=== PATIENT | male | born 1950 | race Caucasian/White ===

== ENCOUNTER 2017-03-13 08:30 | Inpatient (IN) | payer BC, MEDICARE ==
[~2017-03-13] VITALS: Ht 165.1 cm; Wt 60.8 kg
[~2017-03-13 08:30] MED LIST: ASPI-605 PO; CHOL20004 PO; OMEG-49 PO; SIMV10TA6 PO
[2017-03-13] MEDS ORDERED: AMLODIPINE BESYLATE 5 MG TAB PO (08:41)
[2017-03-13 09:16] LABS: BASOPHILS % (AUTO) 0.3 % (0.0-2.0); EOSINOPHILS # (AUTO) 0.1 K/uL (0.0-0.7); EOSINOPHILS % (AUTO) 0.9 % (0.0-7.0); HEMATOCRIT 42.8 % (36.7-47.1); HEMOGLOBIN 15.1 g/dL (12.5-16.3); LYMPHOCYTES # (AUTO) 1.4 K/uL (20.0-40.0); LYMPHOCYTES % (AUTO) 13.2 % (20.5-51.5); MEAN CORPUSCULAR HEMOGLOBIN 30.6 uug (23.8-33.4); MEAN CORPUSCULAR HGB CONC 35 g/dL (32.5-36.3); MEAN CORPUSCULAR VOLUME 86.8 fL (73.0-96.2); MONOCYTES # (AUTO) 0.6 K/uL (2.0-10.0); MONOCYTES % (AUTO) 5.9 % (0.0-11.0); NEUTROPHILS # (AUTO) 8.2 K/uL (1.8-8.9); NEUTROPHILS % (AUTO) 79.7 % (38.5-71.5); PLATELET COUNT (AUTO) 167 K/uL (152-348); RED BLOOD CELL COUNT(AUTO) 4.93 MIL/uL (4.06-5.63); WHITE BLOOD COUNT (AUTO) 10.3 K/uL (3.6-10.2)
[2017-03-13 09:17] LABS: *BILIRUBIN,URIN NEGATIVE (NEGATIVE); *BLOOD, URINE Trace-lysed (NEGATIVE); *CLARITY,URINE CLEAR (CLEAR); *COLOR,URINE YELLOW (YELLOW); *KETONES,URINE NEGATIVE (NEGATIVE); *PROTEIN,URINE NEGATIVE (NEGATIVE); *UROBILINOGEN,URINE 0.2 E.U./dl (NORMAL); LEUKOCYTE ESTERASE ,URINE NEGATIVE (NEGATIVE); NITRITE, URINE NEGATIVE (NEGATIVE); PH,URINE 7.5 (5.0-8.0); UGLUCOSE NEGATIVE (NEGATIVE)
[2017-03-13 09:25] LABS: CREATININE 0.9 mg/dL (0.6-1.3); POTASSIUM 3.9 mmol/L (3.5-5.1)
[2017-03-13 09:31] LABS: BILIRUBIN,TOTAL 1.1 mg/dL (0.2-1.0); TOTAL PROTEIN, SERUM 7.6 g/dL (6.4-8.2)
[2017-03-13 09:37] LABS: BACTERIA,URINE NONE SEEN /HPF (NONE SEEN); MUCUS,URINE FEW /LPF (0-FEW); SQUAMOUS EPITHELIAL CELL,UR FEW /HPF (NONE SEEN); WBC,URINE 0-3 /HPF (0-3)
--- NOTE | 2017-03-13 11:44 | NUR ---
dr. boyd at bedside for gi consult per dr. javad henderson request
--- NOTE | 2017-03-13 12:09 | NUR ---
pt transfered to floor in stable codition. pt deneis nausea the whole er stay, for the abdominal discomfort, pt refused any pain med the whole er stay
--- NOTE | 2017-03-13 12:20 | NUR ---
Patient arrived from ER, ambulated to bed with no concern. Patient in no evident distress at this time. Bed placed in low position, side rails up x2.
[2017-03-13 13:30] VITALS: BP 129/76
[2017-03-13 14:21] LABS: AMYLASE 45 U/L (25-115); LIPASE 118 U/L (73-393)
[2017-03-13 16:05] VITALS: BP 114/70
--- NOTE | 2017-03-13 18:44 | NUR ---
Patient is in bed, tolerated dinner meal well. No evidence of distress noted at this time. Bed in low position, side rails up x2. Waiting for patient to void in order to send UA drug screening, MRSA swab completed, and Rapid influenza complete.
[2017-03-13 19:21] LABS: *BILIRUBIN,URIN NEGATIVE (NEGATIVE); *BLOOD, URINE Trace-lysed (NEGATIVE); *CLARITY,URINE CLEAR (CLEAR); *COLOR,URINE YELLOW (YELLOW); *KETONES,URINE NEGATIVE (NEGATIVE); *PROTEIN,URINE NEGATIVE (NEGATIVE); *UROBILINOGEN,URINE 0.2 E.U./dl (NORMAL); LEUKOCYTE ESTERASE ,URINE NEGATIVE (NEGATIVE); NITRITE, URINE NEGATIVE (NEGATIVE); UGLUCOSE NEGATIVE (NEGATIVE)
[2017-03-13 19:37] LABS: *AMPHETAMINE, URINE NEGATIVE (NEGATIVE); *BARBITURATE, URINE NEGATIVE (NEGATIVE); *CANNABINOID, URINE NEGATIVE (NEGATIVE); *COCCAINE, URINE NEGATIVE (NEGATIVE); *OPIATE, URINE NEGATIVE (NEGATIVE); *PHENCYCLIDINE SCREEN,URINE NEGATIVE (NEGATIVE)
[2017-03-13 19:56] LABS: MUCUS,URINE FEW /LPF (0-FEW); WBC,URINE 0-3 /HPF (0-3)
--- NOTE | 2017-03-13 20:35 | NUR ---
NSG: Received Patient laying in bed. No c/o pain or discomfort distress noted at this time. ivf running well. Bed in low position, side rails up x2. family member at bedside.
[2017-03-13 20:42] VITALS: BP 123/65
--- NOTE | 2017-03-14 00:09 | NUR ---
NSG: PATIENT RESTING EYES CLOSE. NO S/S OF PAIN OR DISCOMFORT NOTED THIS TIME.
[2017-03-14 04:00] VITALS: BP 110/61
[2017-03-14 04:53] VITALS: BP 110/61
--- NOTE | 2017-03-14 06:21 | NUR ---
NSG: SLEPT WELL. AMBULATE TO BATH ROOM WITHOUT ANY PROBLEM. STEADY GAIT.COMPLIANT WITH AM MEDS.NO C/O PAIN OR DISCOMFORT AT THIS TIME.CONTINUE PLAN OF CARE.
--- NOTE | 2017-03-14 07:15 | NUR ---
RECEIVED REPORT FROM FAIRING WORKER NURSE, PATIENT IN BED ASLEEP, NO EVIDENCE OF DISTRESS SEEN, BED IN LOW POSITION, SIDE RAILS UP X2.
[2017-03-14 07:56] LABS: PHOSPHOROUS 3.8 mg/dL (2.5-4.9)
[2017-03-14 07:57] LABS: THYROID STIMULATING HORMONE 2.586 mIU/mL (0.358-3.740)
[2017-03-14 08:01] LABS: BASOPHILS % (AUTO) 0.4 % (0.0-2.0); EOSINOPHILS # (AUTO) 0.3 K/uL (0.0-0.7); EOSINOPHILS % (AUTO) 4.3 % (0.0-7.0); HEMATOCRIT 41.9 % (36.7-47.1); HEMOGLOBIN 14.5 g/dL (12.5-16.3); LYMPHOCYTES # (AUTO) 1.5 K/uL (20.0-40.0); LYMPHOCYTES % (AUTO) 25.1 % (20.5-51.5); MEAN CORPUSCULAR HEMOGLOBIN 30.1 uug (23.8-33.4); MEAN CORPUSCULAR HGB CONC 35 g/dL (32.5-36.3); MEAN CORPUSCULAR VOLUME 86.9 fL (73.0-96.2); MONOCYTES # (AUTO) 0.4 K/uL (2.0-10.0); MONOCYTES % (AUTO) 7.3 % (0.0-11.0); NEUTROPHILS # (AUTO) 3.9 K/uL (1.8-8.9); NEUTROPHILS % (AUTO) 62.9 % (38.5-71.5); PLATELET COUNT (AUTO) 165 K/uL (152-348); RED BLOOD CELL COUNT(AUTO) 4.82 MIL/uL (4.06-5.63)
[2017-03-14 08:21] LABS: WHITE BLOOD COUNT (AUTO) 6.2 K/uL (3.6-10.2)
[2017-03-14 11:03] VITALS: BP 123/70
[2017-03-14] MEDS ORDERED: CIPR500T5 PO (12:18)
[2017-03-14] MEDS ORDERED: METR250T PO (12:18)
--- NOTE | 2017-03-14 14:20 | NUR ---
Patient was given discharge education, IV removed, and patient was escorted in a wheel chair. Patient was in no evident distress, no SOB, no pain, voiding and passing gas. Patient had two bowel movements today.
== END 2017-03-14 14:30 | disposition home or self-care (01) | DRG 392 ==
LOC: ER 08:30 → TELE 12:02 → MED 18:46
PROVIDERS: ADMIT Internal Medicine; ATTEND Internal Medicine
DX: A08.4 Viral intestinal infection, unspecified (principal); I10 Essential (primary) hypertension; E78.5 Hyperlipidemia, unspecified; Z87.891 Personal history of nicotine dependence; K44.9 Diaphragmatic hernia without obstruction or gangrene; K57.30 Diverticulosis of large intestine without perforation or abscess without bleeding
CPT/HCPCS: 36415; 70030-TC; 71010; 80307; 82746; 83550; 83605; 83690; 83735; 84100; 84153; 84443; 85025; 85730; 86625; 87040; 87046; 87086; 87400; 87806; 89055; 93005; 93307; A4663; J0744; J3490; J7030; J7050; Q9967